=== PATIENT | female | born 1965 | race Caucasian/White ===

== ENCOUNTER → 2016-03-23 | Outpatient (CLI) | payer OTHER ==
--- NOTE | 2016-04-02 12:44 | MA ---
Screening Digital Mammogram With Tomosynthesis and iCAD Indication: Routine screening. Technique: Standard digital CC projections were obtained. Digital breast tomosynthesis was performed in the MLO projection with reconstruction at 1.0-mm slice thickness. Composite MLO views were recons tructed. This examination was processed by the iCAD computer-aided detection system. Comparison: April 2012 and May 2010. Breast density: Type B. Findings: CAD was reviewed. No suspicious microcalcifications, mass, or architectural distortion. Impression: Negative mammogram BI-RADS 1: Negative mammogram. Recommendation: Routine screening is recommended in one year. [facility] will send a result letter to the patient. Negative mammography should not preclude additional workup of a clinically suspicious finding. The patient's information is entered into a reminder system with a target due date for her next mammo gram.
== END ==
LOC: FIMAGING 07:32
DX: Z12.31 Encounter for screening mammogram for malignant neoplasm of breast (principal)
CPT/HCPCS: G0202

== ENCOUNTER 2017-04-11 14:36 | Emergency (ER) | payer OTHER ==
--- NOTE | 2017-04-11 15:17 | EDPHY ---
H & P Time Seen by Provider: 04/11/17 15:12 HPI/ROS: CHIEF COMPLAINT: Headache HISTORY OF PRESENT ILLNESS: This patient is a 52 y/o female complaining of severe headache, now mostly resolved. This morning, she woke with a mild headache, which is not unusual for her. She took Excedrin and the headache resolved and she went to work. This afternoon, she walked up a flight of stairs after a meeting and had sudden onset of a moderate pounding headache. Her headache worsened and she became frightened. She rates her discomfort at 9.5/10 in severity at its peak. She felt a pounding sensation in her head synchronized with her heartbeat for about five minutes, then the discomfort slowly reduced. She began perspiring and noted she was pale in a mirror. She felt shaky and nauseous, but did not vomit. She continues to have a mild headache now 0.5/10, similar to prior LINN's. She denies recent head or neck trauma or chiropractic manipulations. She had a recent cold but no other illness. No pertinent family medical history. REVIEW OF SYSTEMS: A 10 point review of systems was performed and is negative with the exception of the elements mentioned in the history of present illness. Past Medical/Surgical History: Asthma Social History: . Lives in [place]. Nonsmoker. Smoking Status: Never smoked Physical Exam: General Appearance: Alert, pleasant Eyes: Pupils equal and round, no conjunctival pallor or injection ENT, Mouth: Mucous membranes moist Neck: Normal inspection Respiratory: Lungs are clear to auscultation Cardiovascular: Regular rate and rhythm Gastrointestinal: Abdomen is soft and non-tender Neurological: Alert, oriented x3, cranial nerves II through XII intact, motor 5 /5, sensory intact to light touch, normal gait Skin: Warm and dry, no rash Extremities: Nontender, no pedal edema Psychiatric: Mood and affect normal Constitutional: Initial Vital Signs Temperature (C) 36.4 C 04/11/17 14:48 Heart Rate 72 04/11/17 14:48 Respiratory Rate 18 04/11/17 14:48 Blood Pressure 167/98 H 04/11/17 14:48 O2 Sat (%) 98 04/11/17 14:48 O2 Delivery Mode Room Air Allergies/Adverse Reactions: Penicillins Allergy (Verified 03/30/15 20:30) Home Medications: Medication Instructions Recorded Albuterol [Proventil 2 mg (*)] 03/30/15 Beclomethasone Qvar 40 [Qvar 40 03/30/15 (RX)] Progesterone [Progesterone in Oil] 03/30/15 Medical Decision Making - Diagnostics Imaging Results: Imaging Impressions Head CT 04/11/17 15:35 Impression: 1. Normal CT brain without contrast. 2. No sinusitis. 3.Consider MRI of the brain, if there is continued clinical concern. Findings and recommendations discussed with Emergency Department physician, EVY LEAHY at 16:11 hour, 04/11/2017. Final report concurs with initial preliminary interpretation. Imaging: Discussed imaging studies w/ call center support representative Radiologist ED Course/Re-evaluation: 52 y/o female presents following a severe headache earlier today, now mostly resolved. Not a thunderclap LINN, doubt SAH. Exam unremarkable, she is neurologically intact. Plan for CT head. Plan for labs including CBC, chemistries. Laboratory studies unremarkable. 16:[address] Howard, radiologist. CT head normal. Results d/w patient. I do not feel that further testing is indicating, specifically I do not feel that she needs a lumbar puncture or CTA. There is no clinical evidence for subarachnoid hemorrhage, meningitis or other serious etiology of headache. Plan to d/c home in good condition. F/u and return precautions discussed. She is comfortable with this plan. Differential Diagnosis: Headache including but not limited to subarachnoid hemorrhage, migraine headache , tension headache and infectious causes such as meningitis, pharyngitis and sinusitis. - Data Points Laboratory Results: Laboratory Results 04/11/17 15:12 04/11/17 15:12 04/11/17 04/11/17 15:12 15:12 WBC 8.19 10^3/uL 10^3/uL (3.80-9.50) RBC 5.42 10^6/uL H 10^6/uL (4.18-5.33) Hgb 15.8 g/dL g/dL (12.6-16.3) Hct 46.7 % % (38.0-47.0) MCV 86.2 fL fL (81.5-99.8) MCH 29.2 pg pg (27.9-34.1) MCHC 33.8 g/dL g/dL (32.4-36.7) RDW 12.7 % % (11.5-15.2) Plt Count 287 10^3/uL 10^3/uL (150-400) MPV 8.9 fL fL (8.7-11.7) Neut % (Auto) 66.9 % % (39.3-74.2) Lymph % (Auto) 25.2 % % (15.0-45.0) [place] % (Auto) 6.0 % % (4.5-13.0) Eos % (Auto) 1.2 % % (0.6-7.6) Baso % (Auto) 0.5 % % (0.3-1.7) Nucleat RBC Rel Count 0.0 % % (0.0-0.2) Absolute Neuts (auto) 5.48 10^3/uL 10^3/uL (1.70-6.50) Absolute Lymphs (auto) 2.06 10^3/uL 10^3/uL (1.00-3.00) Absolute Monos (auto) 0.49 10^3/uL 10^3/uL (0.30-0.80) Absolute Eos (auto) 0.10 10^3/uL 10^3/uL (0.03-0.40) Absolute Basos (auto) 0.04 10^3/uL 10^3/uL (0.02-0.10) Absolute Nucleated RBC 0.00 10^3/uL 10^3/uL (0-0.01) Immature Gran % 0.2 % % (0.0-1.1) Immature Gran # 0.02 10^3/uL 10^3/uL (0.00-0.10) Sodium 144 mEq/L mEq/L (135-145) Potassium 4.0 mEq/L mEq/L (3.5-5.2) Chloride 106 mEq/L mEq/L (97-110) Carbon Dioxide 22 mEq/l mEq/l (22-31) Anion Gap 16 mEq/L mEq/L (8-16) BUN 16 mg/dL mg/dL (7-23) Creatinine 0.7 mg/dL mg/dL (0.6-1.0) Estimated GFR > 60 Glucose 127 mg/dL H mg/dL (70-100) Calcium 9.6 mg/dL mg/dL (8.5-10.4) Departure - Departure Disposition: Home, Routine, Self-Care Clinical Impression: Headache Qualifiers: Headache type: unspecified Headache chronicity pattern: acute headache Intractability: not intractable Qualified Code(s): R51 - Headache Condition: Good Instructions: Acute Headache (ED) Additional Instructions: The CT of your brain today was normal. Follow-up with your primary care physician. Return to the emergency department for recurrence of severe headache, vomiting, weakness, neck pain, fever or other concerns. Referrals: Jael Parmar MD [Primary Care Provider] - 2-3 days, call for appt. (Call to make an appointment.) Report Scribed for: Evy Leahy Report Scribed by: Valeri Russell Date of Report: 04/11/17 Time of Report: 15:17 Physician Review and Approval Statement: 04/11/17 15:17 Portions of this note were transcribed by a medical records assistant. I personally performed a history, physical exam, medical decision making, and confirmed accuracy of information the transcribed note.
[2017-04-11 15:39] LABS: PLATELET COUNT 287 10^3/uL (150-400)
[2017-04-11 16:46] VITALS: BP 164/102; PULSE 75; RESP 16; TEMP 98.4; O2SAT 95
== END 2017-04-11 16:44 | disposition home or self-care (01) ==
DX: R51 Headache (principal); J45.909 Unspecified asthma, uncomplicated

== ENCOUNTER → 2017-05-16 | Outpatient (CLI) | payer OTHER | LOC: FIMAGING 08:14 | PROVIDERS: ATTEND Family Medicine | DX: Z12.31 Encounter for screening mammogram for malignant neoplasm of breast (principal) ==

== ENCOUNTER → 2018-06-14 | Outpatient (CLI) | payer OTHER | LOC: FIMAGING 07:47 | PROVIDERS: ATTEND Family Medicine | DX: Z12.31 Encounter for screening mammogram for malignant neoplasm of breast (principal) ==